=== PATIENT | male | born 1980 | race Caucasian/White ===

== ENCOUNTER 2021-09-25 12:13 | Emergency (ER) | payer BC ==
[2021-09-25] MEDS ORDERED: Sodium Chloride 0.9% 1,000 ML IV ONE (12:34)
[2021-09-25] MEDS ORDERED: Sodium Chloride 0.9% 10 ML Syringe FLUSH PRN (12:34)
[2021-09-25] MEDS ORDERED: Ketorolac 30 MG/ML SDV IVPUSH ONE (12:35)
[2021-09-25] MEDS ORDERED: Ondansetron 4 MG/2 ML SDV IVPUSH ONE (12:35)
[2021-09-25 12:58] LABS: ANION GAP 15.8 mmol/L (5-15)
[2021-09-25] MEDS ORDERED: LORazepam 0.5 MG Tab PO ONE (14:14)
[2021-09-25] MEDS ORDERED: Acetaminophen 500 MG Tab PO ONE (14:19)
[2021-09-25 14:43] VITALS: BP 174/112; PULSE 68
== END 2021-09-25 14:56 | disposition home or self-care (01) ==
LOC: KA.ED 12:13
DX: G44.209 Tension-type headache, unspecified, not intractable (principal)
CPT/HCPCS: 36415; 70450; 80048; 85025; 86140; 93010; 96361; 96374; 96375; 99284; 99284-25; A9270-GY; J1885; J2405; J7030

== ENCOUNTER 2023-07-24 19:10 | Emergency (ER) | payer BC, OTHER ==
[2023-07-24] MEDS ORDERED: Sodium Chloride 0.9% 10 ML Syringe FLUSH PRN (19:29)
[2023-07-24 20:12] LABS: BASOPHILS ABSOLUTE AUTO 0.04 10^3/uL (0.00-0.10); BASOPHILS PERCENT AUTO 0.4 % (0.0-1.0); EOSINOPHILS ABSOLUTE AUTO 0.07 10^3/uL (0.10-0.30); EOSINOPHILS PERCENT AUTO 0.7 % (1.0-3.0); HEMATOCRIT 28.4 % (40.0-52.0); HEMOGLOBIN 9.6 g/dL (13.0-17.0); IMMATURE GRAN ABSOLUTE AUTO 0.01 10^3/uL (0.00-0.50); IMMATURE GRAN PERCENT AUTO 0.1 % (0.0-5.0); LYMPHOCYTES ABSOLUTE AUTO 1.49 10^3/uL (1.00-4.00); LYMPHOCYTES PERCENT AUTO 15.4 % (20.0-40.0); MEAN CORPUSCULAR HEMOGLOBIN 30.4 pg (27.0-31.0); MEAN CORPUSCULAR HGB CONC 33.8 g/dL (32.0-36.0); MEAN CORPUSCULAR VOLUME 89.9 fL (82.0-92.0); MEAN PLATELET VOLUME 10.9 fL (7.4-10.4); MONOCYTES ABSOLUTE AUTO 0.36 10^3/uL (0.10-0.80); MONOCYTES PERCENT AUTO 3.7 % (2.0-8.0); NEUTROPHILS PERCENT AUTO 79.7 % (50.0-70.0); PLATELET COUNT,PLT 254 10^3/uL (150-400); RED BLOOD CELL COUNT 3.16 10^6/uL (4.50-6.00); RED CELL DISTRIBUTION WIDTH 12.3 % (11.5-14.5); WHITE BLOOD CELL COUNT,WBC 9.67 10^3/uL (5.00-10.00)
[2023-07-24] MEDS: Sodium Chloride 0.9% 1,000 ML IV ONE (20:15)
[2023-07-24 20:26] LABS: ALANINE AMINOTRANSFERASE,ALT 25 U/L (14-63); ALBUMIN 3.35 g/dL (3.40-5.00); ALKALINE PHOSPHATASE 44 U/L (46-116); ASPARTATE AMNIOTRANSFERASE,AST 12 U/L (15-37); BILIRUBIN TOTAL 0.4 mg/dL (0.2-1.0); BLOOD UREA NITROGEN,BUN 34 mg/dL (7-18); CALCIUM 8.8 mg/dL (8.7-10.3); CARBON DIOXIDE,CO2 28.7 mmol/L (21.0-32.0); CHLORIDE,CL 102 mmol/L (98-107); CREATININE 0.72 mg/dL (0.51-1.17); GLUCOSE RANDOM 109 mg/dL (70-140); POTASSIUM,K 3.7 mmol/L (3.5-5.1); PROTEIN TOTAL,TP 6.5 g/dL (6.4-8.2); SODIUM,NA 140 mmol/L (136-145)
[2023-07-24 20:28] LABS: ESTIMATED GFR 116 mL/min (>=60)
[2023-07-24 20:47] LABS: APPEARANCE,URINE CLEAR (CLEAR); BACTERIA,URINE OCCASIONAL /HPF (NONE TO FEW); BILIRUBIN,URINE NEGATIVE (NEGATIVE); COLOR,URINE LIGHT YELLOW (YELLOW); EPITHELIAL CELLS,URINE RARE /LPF; GLUCOSE,URINE NEGATIVE (NEGATIVE); KETONES,URINE NEGATIVE (NEGATIVE); LEUKOCYTE ESTERASE,URINE NEGATIVE (NEGATIVE); NITRITE,URINE NEGATIVE (NEGATIVE); OCCULT BLOOD,URINE TRACE-INTACT (NEGATIVE); PH,URINE 6.5 (5.0-9.0); PROTEIN,URINE NEGATIVE (NEGATIVE); RBC,URINE 0-5 /HPF (0-5); UROBILINOGEN,URINE 0.2 E.U./dL (0.2-1.0); WBC,URINE 0-5 /HPF (0-5)
== END 2023-07-24 21:30 | disposition home or self-care (01) ==
LOC: KA.ED 19:10
DX: R55 Syncope and collapse (principal); D64.9 Anemia, unspecified; E86.0 Dehydration; Z79.899 Other long term (current) drug therapy
CPT/HCPCS: 36415; 71045; 80053; 81001; 84484; 85025; 96360; 99284; J7030